=== PATIENT | male | born 1995 | race Asian ===

== ENCOUNTER 2022-07-28 15:23 | Emergency (ER) | payer MEDICAID ==
[~2022-07-28] VITALS: Ht 182.9 cm; Wt 99.0 kg
[2022-07-28 15:41] VITALS: BP 126/88
[2022-07-28] MEDS ORDERED: KETOROLAC 60MG/2ML VIAL IM ONE (16:00)
[2022-07-28] MEDS ORDERED: IBUP-2029 MT (18:01)
[2022-07-28] MEDS ORDERED: HYDR-4001 MT (18:01)
== END 2022-07-28 18:37 | disposition home or self-care (01) ==
LOC: ER 15:23
DX: S82.402A Unspecified fracture of shaft of left fibula, initial encounter for closed fracture (principal); J45.909 Unspecified asthma, uncomplicated; W18.30XA Fall on same level, unspecified, initial encounter; Y93.89 Activity, other specified; Y92.89 Other specified places as the place of occurrence of the external cause; Y99.8 Other external cause status
CPT/HCPCS: 29505; 73610; 96372; 99283; J1885; Z7610